=== PATIENT | male | born 1975 | race Caucasian/White ===

== ENCOUNTER 2024-04-03 09:06 | Emergency (ER) | payer OTHER, SELFPAY ==
--- NOTE | ~2024-04-03 | XR_ITS ---
EXAMINATION: XR HIP, RIGHT CLINICAL INFORMATION: Hip pain COMPARISON: Pelvis radiograph 10/19/2007, lumbar spine MR 10/06/2007 TECHNIQUE: Two views of the right hip. FINDINGS: No acute fracture or dislocation. Hip and sacroiliac joint spaces are maintained. Mild osteoarthritis of the hips with subchondral cystic change. Right os acetabuli. Surgical clips overlie the pelvis. Bone graft material is noted in the visualized lower lumbosacral spine. XR/XR hip RT w PEL1V IMPRESSION: 1. Mild degenerative changes of the hips. Electronically signed by: Vicky Cabello MD 04/03/2024 11:00 AM EDT
--- NOTE | ~2024-04-03 | US_ITS ---
EXAMINATION: US SCROTUM CLINICAL INFORMATION: Plan COMPARISON: None available. TECHNIQUE: A sonogram of the scrotum was performed assessing larson-scale appearance and color Doppler flow. Spectral Doppler analysis of the arterial and venous flow were performed in the testes bilaterally. FINDINGS: RIGHT: Right testicle measures 4.6 x 2.3 x 3.0 cm, volume 16.4 mL. No focal testicular parenchymal lesions are visualized. Spectral Doppler analysis of the arterial and venous flow is normal in the right testis. Right epididymal head is normal in size. Trace right-sided hydrocele. Right epididymal Doppler flow is normal. LEFT: Left testicle measures 4.3 x 2.3 x 3.1 cm, volume 15.9 mL. No focal testicular parenchymal lesions are visualized. Spectral Doppler analysis of the arterial and venous flow is normal in the left testis. Left epididymal head is normal in size left epididymal head complex cystic focus measuring 0.6 x 0.4 x 0.5 cm.. Trace left-sided hydrocele. Left epididymal Doppler flow is normal. US/US scrotum doppler IMPRESSION: 1. Bilateral testicular vascular flow identified. 2. Trace bilateral hydrocele. 3. Left epididymal head complex cystic focus measuring 0.6 x 0.4 x 0.5 cm. Electronically signed by: Denis Esposito MD 04/03/2024 12:12 PM EDT
--- NOTE | ~2024-04-03 | US_ITS ---
EXAMINATION: US SCROTUM CLINICAL INFORMATION: Plan COMPARISON: None available. TECHNIQUE: A sonogram of the scrotum was performed assessing larson-scale appearance and color Doppler flow. Spectral Doppler analysis of the arterial and venous flow were performed in the testes bilaterally. FINDINGS: RIGHT: Right testicle measures 4.6 x 2.3 x 3.0 cm, volume 16.4 mL. No focal testicular parenchymal lesions are visualized. Spectral Doppler analysis of the arterial and venous flow is normal in the right testis. Right epididymal head is normal in size. Trace right-sided hydrocele. Right epididymal Doppler flow is normal. LEFT: Left testicle measures 4.3 x 2.3 x 3.1 cm, volume 15.9 mL. No focal testicular parenchymal lesions are visualized. Spectral Doppler analysis of the arterial and venous flow is normal in the left testis. Left epididymal head is normal in size left epididymal head complex cystic focus measuring 0.6 x 0.4 x 0.5 cm.. Trace left-sided hydrocele. Left epididymal Doppler flow is normal. US/US scrotum IMPRESSION: 1. Bilateral testicular vascular flow identified. 2. Trace bilateral hydrocele. 3. Left epididymal head complex cystic focus measuring 0.6 x 0.4 x 0.5 cm. Electronically signed by: Denis Esposito MD 04/03/2024 12:12 PM EDT
[2024-04-03 09:16] VITALS: BP 126/80; PULSE 62; RESP 16; TEMP 36.4; O2SAT 99; BMI 21.5
--- OUTSIDE RECORDS SUMMARY | 2024-04-03 09:45 | XMS_ITS | Continuity of Care Document ---
Author Organization [facility] Address [address] [place] [address]- Care Team Providers Care Cigar Packer And Shader Name Role Phone Ester ANNA, Laura Primary Care Physician Encounter [facility] Date(s): 01/08/23 - 05/13/[address] [id number] Attending Physician: Deniz Mcclendon MD Admitting Physician: Deniz Mcclendon MD Allergies, Adverse Reactions, Alerts Substance Reaction Severity Status penicillins swelling Active Bee Stings Active Immunizations Given and Recorded Vaccine Date Status Refusal Reason influenza virus vaccine, inactivated 07/11/21 Adal rded SARS-CoV-2 (COVID-19) mRNA-1273 vaccine 07/11/21 R ecorded SARS-CoV-2 (COVID-19) mRNA-1273 vaccine 12/24/20 R ecorded SARS-CoV-2 (COVID-19) mRNA-1273 vaccine 11/26/20 R ecorded tetanus/diphtheria/pertussis, acel(Tdap) 05/08/20 Given tetanus-diphtheria toxoids (Td) 05/21/12 Recorded tetanus-diphtheria toxoids (Td) 12/31/06 Recorded Medications Albuterol (Eqv-ProAir HFA) 90 mcg/inh inhalation aerosol 2 puffs, Inhalation, Every 6 hours, # 8.5 each, 5 Refills, Maintenance, 03/24/23 8:04:00 EDT, [facility], 25, INHALE 2 PUFFS BY MOUTH EVERY 6 HOURS, 178, cm, 03/05/23 11:08:00 EDT, Height, 68.9,kg, 12/26/22 15:42:00 EDT, Dry Weight Start Date: 03/24/23 Status: Ordered lamotrigine 25 mg oral tablet 25 mg, 1, tablet, By Mouth, 2 times a day, Refills 0, Maintenance, 03/05/23 11:12:00 EDT, Partial fill upon patient request if the prescription is for a schedule II opioid drug. Start Date: 03/05/23 Status: Ordered NuLYTELY with Flavor Packs oral powder for reconstitution 240 mL, By Mouth, Every 10 minutes, split prep method, take 1st half of prep evening before procedure, 2nd half 6 hrs prior to procedure., # 1 each, 0 Refills, Maintenance, 01/11/23 11:49:00 EDT, RECPowdnenita, [facility] #[id number], test date 04/13,... Start Date: 01/11/23 Status: Ordered sertraline 25 mg oral tablet 1 tablet = 25 mg, By Mouth, Daily, 0 Refills, Maintenance, 03/05/23 11:11:00 EDT, Partial fill uponpatient request if the prescription is for a schedule II opioid drug. Start Date: 03/05/23 Status: Ordered varenicline 1mg tablet 1 tablet, By Mouth, 2 times a day, # 60 tablet, 0 Refills, Maintenance, 04/30/23 16:51:00 EDT, [facility], 178, cm, 03/25/23 14:11:00 EDT, Height, 68.9, kg, 12/26/22 15:42:00 EDT, Dry Weight Start Date: 04/30/23 Status: Ordered Problem List Condition Confirmation Course Effective Dates Status Health St atus Informant Anxiety Confirmed Active COPD without exacerbation Confirmed Active Hx of spinal fusion Confirmed Active PTSD (post-traumatic stress disorder) Confirmed Active Sleep apnea Confirmed Active Smoker Confirmed Active Social History Social History Type Response Smoking Status Current every day sm oker; Type: Cigarettes; Other: 1.5 PPD; entered on: 03/13/17 Sex Patient Care team information Care Team Personnel Name: Laura Norman NP Position: S PCO Associate Professional Member Role: PCP Address: Address: [address] [place] [address]- Care Team Related Persons Name: PEG BELTRÁN Address: home [address] [place] [address] Name: RODO SOARES Address: home [address] [place] [address]
--- OUTSIDE RECORDS SUMMARY | 2024-04-03 09:45 | XMS_ITS | Continuity of Care Document ---
Author Organization [facility] Address [address] [place] [address]- Care Team Providers Care Public Health Technician Name Role Phone Ester ANNA, Laura Primary Care Physician Encounter [facility] ACCT R [id number] Date(s): 01/11/23 - 02/10/23 [facility] [address] [place] [address]- [place] Allergies, Adverse Reactions, Alerts Substance Reaction Severity [...] Inhalation, Every 6 hours, # 8.5 each, 0 Refills, Maintenance, 02/03/23 7:38:00 EDT, [facility], 25, INHALE 2 PUFFS BY MOUTH EVERY 6 HOURS, 178, cm, 01/06/23 7:39:00 EDT, Height, 68.9, kg, 12/26/22 15:42:00 EDT, Dry Weight Start Date: 02/03/23 Status: Ordered NuLYTELY with Flavor Packs oral powder for reconstitution 240 mL, By Mouth, Every 10 minutes, split prep method, take 1st half of prep evening before procedure, 2nd half 6 hrs prior to procedure., # 1 each, 0 Refills, Maintenance, 01/11/23 11:49:00 EDT, RECPowder, [facility]/pharmacy #[id number], test date 04/13,... Start Date: 01/11/23 Status: Ordered varenicline 0.5 mg-1 mg oral tablet 1 tablet, By Mouth, 2 times a day, # 1 kit, 0 Refills, Maintenance, 01/06/23 8:12:00 EDT, Tablet, [facility]/pharmacy #1130, Partial fill upon patient request if the prescription is for a schedule II opioiddrug., 178, cm, 01/06/23 7:39:00 EDT, Height, 68.9,... Start Date: 01/06/23 Status: Ordered Problem List Condition Confirmation Course Effective Dates Status Health St atus Informant Anxiety Confirmed Active COPD without exacerbation Confirmed Active Sleep apnea Confirmed Active Smoker Confirmed Active Social History Social History Type Response Smoking Status Current every day sm oker; Type: Cigarettes; Other: 1.5 PPD; entered on: 03/13/17 Sex Patient Care team information Care Team Personnel Name: Laura Norman NP Position: [facility] PCO Associate Professional Member Role: PCP Address: Address: [address] [place] [address]- Care Team Related Persons Name: PEG BELTRÁN Address: home [address] [place] [address] Name: RODO SOARES Address: [address] [place] [address]
--- OUTSIDE RECORDS SUMMARY | 2024-04-03 09:45 | XMS_ITS | Continuity of Care Document ---
Author Organization [facility] Address [address] [place] [address]- Care Team Providers Care Poultry And Fish Butcher Name Role Phone Not on Staff, PCP Primary Care Physician Unavail able Encounter [facility] Date(s): 04/27/21 - 04/27/[address] [address]- Discharge Disposition: A-D/C Home Attending Physician: Wm Golden MD Admitting Physician: Wm Golden MD Referring Physician: Not on Staff, Referring MD Allergies, Adverse Reactions, Alerts Substance Reaction Severity Status penicillins swelling Active Bee Stings Active Immunizations Given and Recorded Vaccine Date Status Refusal Reason tetanus/diphtheria/pertussis, acel(Tdap) 05/08/20 Given Medications doxycycline hyclate 100 mg oral tablet 1 tablet = 100 mg, By Mouth, 2 times a day, for 10 days, # 20 tablet, 0 Refills, Acute 05/07/21 20:47:00 EDT, 04/27/21 20:47:00 EDT, [facility], [id number], Partial fill upon patient request if the prescription is for a schedule II opioid drug., 1... Start Date: 04/27/21 Stop Date: 05/07/21 Status: Ordered Results Radiology Reports * Exam Date Time Procedure Performing Provider Status 04/27/21 8:13 PM Chest 2 Views Frontal and Lat Hood , T huthao T; Auth (Verified) Notes: (Chest 2 Views Frontal and Lat) Reason For Exam: Pleuritic Pain RESULT: Chest 2 Views Frontal and Lat Chest 2 Views Frontal and Lat Hx of Present Illness: chest discomfort starting wednesday with intermittent cough. reports pain to the touch to his midstrenum. patient is covid vaccinated. denies fever or chills; Reason: Pleuritic Pain; Clinical Question(s): Pneumonia COMPARISON: 3 a 15 x-ray FINDINGS: LINES AND TUBES: None. LUNGS AND PLEURA: Clear lungs. Normal pulmonary vascularity. No pleural effusion. No pneumothorax. HEART, MEDIASTINUM AND RONALDO: Heart is normal in size. Normal upper mediastinal and hilar contour. BONES AND SOFT TISSUES: No acute abnormality. IMPRESSION: No acute abnormality. WSN: [id number] Ordering Physician: Wm Golden Dictated By: Severiano Shaffer MD Dictated Date/Time: 04/27/21 8:17 pm Reviewed By: Severiano Shaffer MD Signed By: Severiano Shaffer MD Signed Date/Time: 04/27/21 8:17 pm Transcribed By: ALEKSANDER Transcribed Date/Time: 04/27/21 8:17 pm Vital Signs Most recent to oldest [Reference Range]: 1 2 3 Height 178 cm (04/27/21 8:55 PM) 178 cm (04/27/21 7:43 PM) 178 cm (04/27/21 7:40 PM) Weight 65.8 kg (04/27/21 8:55 PM) 65.8 kg (04/27/21 7:43 PM) 65.8 kg (04/27/21 7:40 PM) Oxygen Saturation [94-100 %] 97 % (04/27/21 8:55 PM) 98 % (04/27/21 7:40 PM) Pulse Rate [55-90 bpm] 67 bpm (04/27/21 8:55 PM) 68 bpm (04/27/21 7:40 PM) Body Mass Index [18.5-24.99] 20.77 (04/27/21 8:55 PM) 20.77 (04/27/21 7:40 PM) Blood Pressure [90-138/55-84 mm Hg] 117/82mm Hg (04/27/21 8:55 PM) 119/69mm Hg (04/27/21 7:40 PM) Respiratory Rate [16-30 br/min] 20 br/min (04/27/21 8:55 PM) 18 br/min (04/27/21 7:40 PM) Temperature [96.8-100.4 DegF] 97.7 DegF (04/27/21 8:55 PM) 98.2 DegF (04/27/21 7:40 PM) Mode of Delivery (Oxygen) Room air (04/27/21 7:40 PM) Blood pressure sites Arm, left (04/27/21 7:40 PM) Temperature Route Oral (04/27/21 8:55 PM) Oral (04/27/21 7:40 PM) Dry Weight 65.8 kg (04/27/21 8:55 PM) 65.8 kg (04/27/21 7:43 PM) 65.8 kg (04/27/21 7:40 PM) Weight Obtained Via Standing scale (04/27/21 7:40 PM) Social History Social History Type Response Smoking Status Current every day joo wan; Type: Cigarettes; Other: 1.5 PPD; entered on: 03/13/17 Sex
--- OUTSIDE RECORDS SUMMARY | 2024-04-03 09:45 | XMS_ITS | Continuity of Care Document ---
Author Organization [facility] Address [address] [place] [address]- Care Team Providers Care Helmet Hat Brim Cutter Name Role Phone Laura Norman NP Primary Care Physician Encounter [facility] Date(s): 12/26/22 - 12/26/[address] [address]- Encounter Diagnosis Acute nonspecific chest pain with low risk of coronary artery disease(Final) - 12/26/22 Discharge Disposition: A-D/C Home Attending Physician: Isrrael Huertas MD Admitting Physician: Isrrael Huertas MD Referring Physician: Not on Staff, Referring MD Allergies, Adverse Reactions, Alerts Substance Reaction Severity Status penicillins swelling Active Bee Stings Active Immunizations Given and Recorded Vaccine Date Status Refusal Reason tetanus/diphtheria/pertussis, acel(Tdap) 05/08/20 Given Medications Acetaminophen Tablet 975 mg, Tablet, By Mouth, Once, STAT, 12/26/22 16:52:00 EDT, Stop date 12/26/22 16:52:00 EDT Start Date: 12/26/22 Stop Date: 12/26/22 Status: Completed Motrin Tablet 600 mg, Tablet, By Mouth, Once, STAT, 12/26/22 16:52:00 EDT, Stop date 12/26/22 16:52:00 EDT Start Date: 12/26/22 Stop Date: 12/26/22 Status: Completed Results Radiology Reports * Exam Date Time Procedure Performing Provider Status 12/26/22 3:53 PM Chest 2 Views Frontal and Lat Arcelia Vanessa (Verified) Notes: (Chest 2 Views Frontal and Lat) Reason For Exam: Chest Pain;Other: RESULT: Chest 2 Views Frontal and Lat PA and lateral chest dated November 20162022. Comparison films are from April 27, 2021. HISTORY: Chest pain. FINDINGS: The cardiac silhouette is within normal limits for size. Hilar and mediastinal structuresare unremarkable. No airspace infiltrate or pleural effusion is identified. Minimal degenerative changes are noted in the spine. Overall, the lungs are hyperinflated with flattened diaphragms and an increased retrosternal clear space consistent with the clinical diagnosis of COPD. IMPRESSION: No evidence of acute pulmonary disease and no significant interval change. Findings are consistent with the clinical diagnosis of COPD. Examination 854[address]. Thank you for allowing me to participate in the care of this patient. WSN: [id number] Ordering Physician: Betito Mojica Dictated By: David Jacobson MD Dictated Date/Time: 12/26/22 4:07 pm Reviewed By: David Jacobson MD Signed By: David Jacobson MD Signed Date/Time: 12/26/22 4:07 pm Transcribed By: ALEKSANDER Transcribed Date/Time: 12/26/22 4:07 pm Vital Signs Most recent to oldest [Reference Range]: 1 2 3 Height 178 cm (12/26/22 7:14 PM) 178 cm (12/26/22 5:33 PM) 178 cm (12/26/22 4:28 PM) Weight 68.9 kg (12/26/22 3:42 PM) Oxygen Saturation [94-100 %] 97 % (12/26/22 7:14 PM) 97 % (12/26/22 5:33 PM) 98 % (12/26/22 4:28 PM) Pulse Rate [55-90 bpm] 60 bpm (12/26/22 7:14 PM) 62 bpm (12/26/22 5:33 PM) 60 bpm (12/26/22 4:28 PM) Blood Pressure [90-138/55-84 mm Hg] 114/77mm Hg (12/26/22 7:14 PM) 113/80mm Hg (12/26/22 5:33 PM) 132/91mm Hg (12/26/22 4:28 PM) Respiratory Rate [16-30 br/min] 18 br/min (12/26/22 7:40 PM) 18 br/min (12/26/22 7:40 PM) 18 br/min (12/26/22 7:14 PM) Temperature [96.8-100.4 DegF] 98 DegF (12/26/22 3:42 PM) Liters per Minute 0 L/min (12/26/22 7:14 PM) 0 L/min (12/26/22 5:33 PM) 0 L/min (12/26/22 4:28 PM) Mode of Delivery (Oxygen) Room air (12/26/22 7:14 PM) Room air (12/26/22 5:33 PM) Room air (12/26/22 4:28 PM) Blood pressure sites Arm, left (12/26/22 7:14 PM) Arm, left (12/26/22 5:33 PM) Arm, left (12/26/22 4:28 PM) Temperature Route Temporal (12/26/22 3:42 PM) Dry Weight 68.9 kg (12/26/22 3:42 PM) Weight Obtained Via Standing scale (12/26/22 3:42 PM) Dry Weight Obtained Via Standing scale (12/26/22 3:42 PM) Social History Social History Type Response Smoking Status Current every day joo wan; Type: Cigarettes; Other: 1.5 PPD; entered on: 03/13/17 Sex Note * Mona VALDIVIA, Yariel: PERFORM Event Display: Patient Education Leaflets Authored Date: Noncardiac Chest Pain ?? [id number] Noncardiac Chest Pain In most cases, people who come to the emergency room with chest pain don???t have a problem with their heart. Instead, the pain is caused by other conditions. It's important for the healthcare team to be sure you are not having a life-threatening cause for chest pain such as: ??? Heart attack ??? Blood clot in the lungs ??? Collapsed lung ??? Ruptured esophagus ??? Tearing of the aorta Once these major causes have been ruled out, you may have further evaluation for other causes of chest pain. These may be problems with the lungs, muscles, bones, digestive tract, nerves, or mental health. They include: ??? Inflammation around the lungs (pleurisy) ??? Collapsed lung (pneumothorax) ??? Lung inflammation (pleuritis or pneumonitis) ??? Fluid around the lung (pleural effusion) ??? Lung cancer (rare cause of chest pain) ??? Inflamed cartilage between the ribs (costochondritis) ??? Fibromyalgia ??? Rheumatoid arthritis ??? Chest wall strain ??? Reflux ??? Stomach ulcer ??? Spasms of the esophagus ??? Gall stones ??? Gallbladder inflammation ??? Panic or anxiety attacks ??? Emotional distress Your pain doesn???t seem to be coming from your heart. But sometimes the signs of a serious problemtake more time to appear. Continue to watch for the warning signs listed below. Home care Follow these guidelines when caring for yourself at home: ??? Rest today and don't do any strenuousactivity. ??? Take any prescribed medicine as directed. ?? Follow-up care Follow up with your healthcare provider as advised. ?? Call 911 Call 911 if any of these occur: ??? A change in the type of pain: if it feels different, becomes more severe, lasts longer, or begins to spread into your shoulder, arm, neck, jaw or back ??? Shortness of breath or increased pain with breathing ??? Weakness, dizziness, or fainting ??? Rapid heart beat ??? Crushing sensation in your chest ?? When to seek medical advice Call your healthcare provider right away if any of these occur: ??? Cough with dark colored sputum (phlegm) or blood ??? Fever of 100.4??F (38??C) or higher, or as directed by your healthcare provider ??? Swelling, pain or redness in one leg ?? Last Reviewed Date: 2021 ?? 4200-2499 [employer]. All rights reserved. This information is not intended as a substitute for professional medical care. Always follow your healthcare professional's instructions. ?? Laboratory * Bong , CIS S: CAROLYNE Jacobson MD, David Bermeo: VERIFY Event Display: Result: Authored Date: [id number] PA and lateral chest dated November 20162022. Comparison films are from April 27, 2021. HISTORY: Chest pain. FINDINGS: The cardiac silhouette is within normal limits for size. Hilar and mediastinal structuresare unremarkable. No airspace infiltrate or pleural effusion is identified. Minimal degenerative changes are noted in the spine. Overall, the lungs are hyperinflated with flattened diaphragms and an increased retrosternal clear space consistent with the clinical diagnosis of COPD. IMPRESSION: No evidence of acute pulmonary disease and no significant interval change. Findings are consistent with the clinical diagnosis of COPD. Examination [address]. Thank you for allowing me to participate in the care of this patient. WSN: [id number] Ordering Physician: Betito Mojica Dictated By: David Jacobson MD Dictated Date/Time: 12/26/22 4:07 pm Reviewed By: David Jacobson MD Signed By: David Jacobson MD Signed Date/Time: 12/26/22 4:07 pm Transcribed By: ALEKSANDER Transcribed Date/Time: 12/26/22 4:07 pm Patient Care team information Care Team Personnel Name: Laura Norman NP Position: [facility] PCO Associate Professional Member Role: PCP Address: Address: [address] [place] [address]- Name: Yariel Dunn MD Position: [facility] Resident Member Role: ED Resident Address: Address: [address] [place] [address] [place] [address]- Name: Isrrael Huertas MD Position: [facility] ED Medicine MD Member Role: Admitting Physician Address: Address: [address] [place] [address]- [place] [address]- [place] Name: Micheal Jhaveri RN Position: [facility] ED RN W/OE and Tasks Member Role: Patient Care Provider Name: Prisca Pickard Position: [facility] ED TA [facility] Member Role: Patient Care Provider Care Team Related Persons Name: PEG BELTRÁN Address: home [address] [place] [address] Name: RODO SOARES Address: home [address] [place] [address]
--- OUTSIDE RECORDS SUMMARY | 2024-04-03 09:45 | XMS_ITS | Continuity of Care Document ---
Author Organization [facility] Address [address] [place] [address]- Care Team Providers Care Clothing Patternmaker Name Role Phone Khoa VALDIVIA, Anisa Primary Care Physician Encounter [facility] Date(s): 02/14/20 - 02/14/[address] [address]- [facility] Encounter Diagnosis Eye mass(Final) - 02/14/20 Discharge Disposition: A-D/C Home Attending Physician: Danny Cowan MD Admitting Physician: Danny Cowan MD Referring Physician: Not on Staff, Referring MD Allergies, Adverse Reactions, Alerts Substance Reaction Severity Status penicillins swelling Active Bee Stings Active Medications ibuprofen 600 mg oral tablet 1 tablet = 600 mg, By Mouth, 4 times a day, # 20 tablet, 0 Refills, Maintenance, Tablet Start Date: 02/17/12 Stop Date: 02/22/12 Status: Ordered Vital Signs Most recent to oldest [Reference Range]: 1 2 3 Height 178 cm (02/14/20 4:05 PM) 178 cm (02/14/20 2:49 PM) 178 cm (02/14/20 12:37 PM) Weight 64.4 kg (02/14/20 4:05 PM) 64.4 kg (02/14/20 2:49 PM) 64.4 kg (02/14/20 12:37 PM) Oxygen Saturation [94-100 %] 99 % (02/14/20 4:05 PM) 100 % (02/14/20 2:49 PM) 100 % (02/14/20 12:37 PM) Pulse Rate [55-90 bpm] 62 bpm (02/14/20 4:05 PM) 55 bpm (02/14/20 2:49 PM) 55 bpm (02/14/20 12:37 PM) Body Mass Index [18.5-24.99] 20.33 (02/14/20 4:05 PM) 20.33 (02/14/20 12:37 PM) Blood Pressure [90-138/55-84 mm Hg] 136/96mm Hg (02/14/20 4:05 PM) 107/60mm Hg (02/14/20 2:49 PM) 107/60mm Hg (02/14/20 12:37 PM) Respiratory Rate [16-30 br/min] 17 br/min (02/14/20 4:05 PM) 17 br/min (02/14/20 2:49 PM) 16 br/min (02/14/20 12:37 PM) Temperature [96.8-100.4 DegF] 98.2 DegF (02/14/20 2:49 PM) 98.2 DegF (02/14/20 12:37 PM) Mode of Delivery (Oxygen) Room air (02/14/20 4:05 PM) Room air (02/14/20 2:49 PM) Blood pressure sites Arm, right (02/14/20 2:49 PM) Arm, left (02/14/20 12:37 PM) Temperature Route Oral (02/14/20 2:49 PM) Dry Weight 64.4 kg (02/14/20 4:05 PM) 64.4 kg (02/14/20 2:49 PM) 64.4 kg (02/14/20 12:37 PM) Social History Social History Type Response Smoking Status Current every day joo wan; Type: Cigarettes; Other: 1.5 PPD; entered on: 03/13/17 Sex
--- OUTSIDE RECORDS SUMMARY | 2024-04-03 09:45 | XMS_ITS | Continuity of Care Document ---
Author Organization [facility] Address [address] [place] [address]- Care Team Providers Care Organization Development Consultant Name Role Phone Anisa Couch MD Primary Care Physician Encounter [facility] Date(s): 09/23/20 - 09/23/[address] [address]- Encounter Diagnosis Laceration of finger of right hand with damage to nail(Final) - 09/23/20 Discharge Disposition: A-D/C Home Attending Physician: Landen Martin MD Admitting Physician: Landen Martin MD Referring Physician: Not on Staff, Referring MD Allergies, Adverse Reactions, Alerts Substance Reaction Severity Status penicillins swelling Active Bee Stings Active Immunizations Given and Recorded Vaccine Date Status Refusal Reason tetanus/diphtheria/pertussis, acel(Tdap) 05/08/20 Given Medications No Known Medications Results Radiology Reports * Exam Date Time Procedure Performing Provider Status 09/23/20 8:55 AM Hand Min 3 Views Right Mateo Yeager; Alexa (Verified) Notes: (Hand Min 3 Views Right) Reason For Exam: Trauma RESULT: Hand Min 3 Views Right Hand Min 3 Views Right, 3 views HX OF PRESENT ILLNESS: pt picked up a skill saw that was still running and it cut the end of his ring finger on his right hand; Reason: Trauma; Clinical Question(s): Fracture COMPARISON: None. FINDINGS: No fractures or bone lesions. No arthritic changes. Soft tissue injury overlying the distal phalanx of the ring finger. No radiopaque foreign body. IMPRESSION: Soft tissue injury but no evidence of fracture or radiopaque foreign body. WSN: [id number] Ordering Physician: Frannie Jackman Dictated By: Severiano Suarez MD Dictated Date/Time: 09/23/20 8:58 am Reviewed By: Severiano Suarez MD Signed By: Severiano Suarez MD Signed Date/Time: 09/23/20 8:58 am Transcribed By: ALEKSANDER Transcribed Date/Time: 09/23/20 8:57 am Vital Signs Most recent to oldest [Reference Range]: 1 2 Height 178 cm (09/23/20 11:50 AM) 178 cm (09/23/20 8:36 AM) Weight 65.4 kg (09/23/20 11:50 AM) 65.4 kg (09/23/20 8:36 AM) Oxygen Saturation [94-100 %] 100 % (09/23/20 8:36 AM) Pulse Rate [55-90 bpm] 60 bpm (09/23/20 8:36 AM) Blood Pressure [90-138/55-84 mm Hg] 127/ 90mm Hg (09/23/20 8:36 AM) Respiratory Rate [16-30 br/min] 18 br/mi n (09/23/20 8:36 AM) Temperature [96.8-100.4 DegF] 98.3 DegF (09/23/20 8:36 AM) Temperature Route Temporal (09/23/20 8:36 AM) Dry Weight 65.4 kg (09/23/20 11:50 AM) 65.4 kg (09/23/20 8:36 AM) Dry Weight Obtained Via Standing scale (09/23/20 8:36 AM) Social History Social History Type Response Smoking Status Current every day joo wan; Type: Cigarettes; Other: 1.5 PPD; entered on: 03/13/17 Sex
--- NOTE | 2024-04-03 09:48 | ED.LOWEXIN ---
HPI - Extremity Injury (Lower) General Chief Complaint: Extremity Injury, Lower Stated Complaint: Hip pain Time Seen by Provider: 04/03/24 09:21 Source: patient Mode of arrival: ambulatory Limitations: no limitations History of Present Illness ED Provider: Shy LIU HPI Narrative: This is a 48 year old male with pmh of smoking and spinal fusion 20 years ago hx of bursitits presents w/ atraumatic right hip pain since this morning. Pt states the pain woke him out of bed this morning. He reports pain is worse w/ movement and better at rest. Reports this feels like the time he had bursitis in the past. His last episode was about a year ago. Patient normally ambulates without assistance, but today he has had to use a cane. He did take some ibuprofen with minimal relief. Pt explains pain is sharp, rating it 8/10 severity. Denies any urinary changes, incontinence, trauma, fevers, chills, numbness, tingling, cp, or sob. Related Data Previous Rx's ?Medication ?Instructions ?Recorded acetaminophen 325 mg capsule 325 mg PO Q4H PRN pain #30 caps 04/03/24 (Tylenol) ketorolac 10 mg tablet 10 mg PO TID PRN pain 5 days #15 04/03/24 tabs Allergies Allergy/AdvReac Type Severity Reaction Status Date / Time Penicillins [PENICILLINS] Allergy Unknown UNKNOWN Verified 04/03/24 09:18 Review of Systems Review of Systems: Yes all other systems are reviewed and are negative PMFSH Past Medical History Attestation statement: The following information was validated with the patient. Source: old records reviewed and nursing notes reviewed Social History Social History Advance Directives: No Advance Directives Information Provided: No Do you have a plan to hurt others: No Plan Physical Exam Vital Signs: Vital Signs: Last Vital Signs Temp 97.5 F 04/03/24 09:16 Pulse 62 04/03/24 09:16 Resp 16 04/03/24 09:16 BP 126/80 04/03/24 09:16 Pulse Ox 99 04/03/24 09:16 O2 Del Method Room Air 04/03/24 09:16 BMI result Body Mass Index 21.5 VSS Appearance: Alert.? Oriented X3.? No acute distress.? Head: Normocephalic, atraumatic, no step-offs or deformities Eyes: Pupils equal, round and reactive to light.? Neck: Normal inspection.? Neck supple.? CVS: Normal heart rate and rhythm.? Pulses normal.? Respiratory: No respiratory distress.? Breath sounds normal.? Abdomen: Soft and nontender.? Skin: Skin warm and dry.? Normal skin color.? Normal skin turgor.? Extremities: No lower extremity edema.? No calf ttp. 5/5 strength to bilateral upper and lower extremities; decreased active ROM of R hip due to discomfort, no erythema, bruising, swelling of joint Neuro: Oriented X 3.? No motor deficit.? No sensory deficit. CN 2-12 intact Course Reevaluation(s) Reevaluation #1: Mild degenerative changes of the hip on the right. Scrotal ultrasound with bilateral testicular vascular flow. Trace bilateral hydroceles and left epididymal head complex cystic focus. No signs of active epididymitis. No urinary changes. Educated patient on diagnosis and treatment plan, answered all question, patient verbalizes understanding. At this time patient will be discharged home, advised to return with new or worsening symptoms. Educated on worrisome signs and symptoms and when to return. At this time I feel comfortable discharge home. Time: 12:22 Medications Administered Discontinued Medications Generic Name Dose Route Start Last Admin Trade Name Freq PRN Reason Stop Dose Admin Ketorolac Tromethamine 15 mg 04/03/24 09:48 04/03/24 10:08 Ketorolac Tromethamine 15 Mg/Ml Vial IM 04/03/24 09:49 15 mg ONCE ONE Administration Medical Decision Making Medical Decision Making MDM Narrative: 48 year old male with pmh of smoking and spinal fusion 20 years ago hx of bursitits presents w/ atraumatic right hip pain since this morning. PE - decreased active ROM of R hip due to discomfort, no erythema, bruising, swelling of joint Hx and pe concerning for dislocation vs bursitits vs msucle strain/sprain. Unlikely fracture, acute threat to limb, compartment syndrome, SCFE, avascular necrosis, cauda equina, septic joint Plan - imaging Differential Diagnosis Differential Diagnoses: The differential diagnosis associated with the presentation includes Hx and pe concerning for dislocation vs bursitits vs msucle strain/sprain. Unlikely fracture, acute threat to limb, compartment syndrome, SCFE, avascular necrosis cauda equina, septic joint Admission/Observation Consideration of admission/observation: Escalation of care including admission/observation considered Possible Independent Interpretation I performed an independent interpretation of an: Plain X-Ray ( XR/XR hip RT w PEL1V IMPRESSION: 1. Mild degenerative changes of the hips. ) Radiology Impression Discussion of test interpretation with radiology: I have reviewed the radiologist's reading. Discharge Plan Discharge Clinical Impression: OA (osteoarthritis) of hip, Acute pain of right hip Patient Disposition: Home, Self-Care Instructions: Osteoarthritis (ED), Arthralgia (ED), Hip Pain (ED) Additional Instructions: Take your medications as prescribed. If you were prescribed antibiotics today, it is important that you take your medication to their entirety, do not skip any doses, do not finish them early. Follow-up with your primary care provider this week. Return to the emergency department with new or worsening symptoms. Such as fevers, chills, chest pain, shortness of breath, nausea, vomiting, dizziness, headache, vision changes, lethargy In case of emergency call 911 Toradol has been sent to your pharmacy, you tolerated this well in the department. Please take this as prescribed do not take this with ibuprofen, or other NSAIDs, do not mix this with alcohol. Side effects of this medication including increased risk for bleeding and possible kidney injury. XR/XR hip RT w PEL1V IMPRESSION: 1. Mild degenerative changes of the hips. US/US scrotum IMPRESSION: 1. Bilateral testicular vascular flow identified. 2. Trace bilateral hydrocele. 3. Left epididymal head complex cystic focus measuring 0.6 x 0.4 x 0.5 cm. Prescriptions: New ketorolac 10 mg tablet 10 mg PO TID PRN (Reason: pain) 5 Days Qty: 15 0RF acetaminophen [Tylenol] 325 mg capsule 325 mg PO Q4H PRN (Reason: pain) Qty: 30 0RF Referrals: Physician,Unknown J [Primary Care Provider] - 2 days [facility] [Provider Group] - 1 day [facility] [Provider Group] - 1 day [facility] [Provider Group] - 1 day Stand Alone Forms: Work/School Release Print Language: Namibian
[2024-04-03] MEDS: Ketorolac Tromethamine 15 MG/ML VIAL IM (10:08)
[2024-04-03] MEDS: Acetaminophen 325 MG TABLET 975 MG PO (12:39)
[2024-04-03 12:41] VITALS: BP 122/84; PULSE 62; RESP 16; TEMP 36.6; O2SAT 98
== END 2024-04-03 12:47 | disposition home or self-care (01) ==
PROVIDERS: Emergency Provider Emergency Medicine
DX: M19.09 Primary osteoarthritis, other specified site (principal); M25.551 Pain in right hip; N50.82 Scrotal pain
CPT/HCPCS: 73502; 76870; 93975; 96372; 99283; 99284; J1885

== ENCOUNTER 2024-04-24 10:16 | Outpatient (AMB) | payer OTHER, SELFPAY ==
[2024-04-24 10:44] VITALS: BMI 27.5
--- NOTE | 2024-04-24 10:44 | MHC.OFFVIS ---
Vital Signs 04/24/24 10:44 Height 5 ft 10 in Weight 192 lb BMI 27.5 Intake Visit Reasons: [employer]-Acute pain of right hip/OA Intake Note: Devon is a 48 year old male who presents today as a new patient with complaints of right hip pain. Patient reports that he has had ongoing right hip pain for a few years now on and off. He explains that he has history of spinal fusion , and injections. The right hip is worse than the left. His pain is felt laterally on the hip and also radiates into the groin. Pain is felt all the time, uncomfortable while sitting and walking. He is unable to lay on the side of the hip at night. He takes Ibuprofen PRN for his pain which does not provide much relief. He has done PT but no other previous treatments. Allergies Penicillins [PENICILLINS] Allergy (Unknown, Verified 04/03/24 09:18) UNKNOWN HPI HPI CLE[employer]TER-Acute pain of right hip/OA: Details: The alyssa is a 48-year-old gentleman who comes in with sharp right hip pain. Patient reports that he has had ongoing right hip pain for a few years now on and off. He explains that he has history of spinal fusion , and injections. The right hip is worse than the left. His pain is felt laterally on the hip and also radiates into the groin. Pain is felt all the time, uncomfortable while sitting and walking. He is unable to lay on the side of the hip at night. He takes Ibuprofen PRN for his pain which does not provide much relief. He has done PT but no other previous treatments. [facility] Medical History (Updated 05/01/24 @ 10:01 by Paulino Medina MD) Greater trochanteric bursitis of both hips Surgical History (Updated 05/01/24 @ 10:01 by Paulino Medina MD) H/O spinal fusion (~2003) Physical Exam Vital Signs: BMI result Body Mass Index 27.5 Extrem Other: And has a stooped gait with no Trendelenburg. He has no groin pain with impingement testing with range of motion. There is tenderness over the greater trochanters bilaterally Results Reviewed Results Reviewed: I personally reviewed relevant radiographs. Status post lumbar fusion. Mild bilateral hip arthritis Assessment & Plan Assessment & Plan (1) Greater trochanteric bursitis of both hips: Code(s): M70.61 - Trochanteric bursitis, right hip; M70.62 - Trochanteric bursitis, left hip Category: Medical Plan: Chronic bursitis of the greater trochanter. I reviewed the pathology with him and differentiated this from hip arthritis. I recommend physical therapy (2) Gait disturbance: Code(s): R26.9 - Unspecified abnormalities of gait and mobility Category: Medical Plan: His gait mechanics are poor likely secondary to spinal fusion. PT for range of motion and stretching (3) H/O spinal fusion: Onset Date: ~2003 Comment: Lumbar Spine Code(s): Z98.1 - Arthrodesis status Category: Surgical Plan: Status post spinal arthrodesis proximally 20 years ago. Chronic poor gait mechanics. Orders: Orders PT Evaluation and Treatment Today M70.61 - Trochanteric bursitis, right hip, M70.62 - Trochanteric bursitis, left hip, R26.9 - Unspecified abnormalities of gait and mobility, Z98.1 - Arthrodesis status Medications: Discontinued acetaminophen Discontinued Reason: Patient no longer taking 325 mg PO Q4H PRN 30 caps 0RF pain ketorolac Discontinued Reason: Patient no longer taking 10 mg PO TID 5 days PRN 15 tabs 0RF pain prednisone Discontinued Reason: Patient no longer taking 50 mg PO DAILY 5 days 5 tabs 0RF Coding Level of Care Code New Pt Level 4 (11665) Diagnoses Greater trochanteric bursitis of both hips M70.61; M70.62 Gait disturbance R26.9 H/O spinal fusion Z98.1
== END 2024-04-24 11:21 | disposition home or self-care (01) ==
PROVIDERS: Visit Provider Orthopaedic Surgery
DX: M70.61 Trochanteric bursitis, right hip (principal); M70.62 Trochanteric bursitis, left hip; R26.9 Unspecified abnormalities of gait and mobility; Z98.1 Arthrodesis status
CPT/HCPCS: 99204

== ENCOUNTER → 2024-04-24 10:16 | Outpatient (BNVA) | payer OTHER, SELFPAY | PROVIDERS: Visit Provider Orthopaedic Surgery | DX: M70.61 Trochanteric bursitis, right hip (principal); M70.62 Trochanteric bursitis, left hip; R26.9 Unspecified abnormalities of gait and mobility; Z98.1 Arthrodesis status | CPT/HCPCS: 99202 ==